=== PATIENT | female | born 1985 | race Caucasian/White ===

== ENCOUNTER → 2016-06-16 | Outpatient (CLI) | payer OTHER ==
--- NOTE | 2016-06-16 18:07 | REP ---
Clinical: Increasing pain without trauma. Technique: AP, lateral, bilateral oblique and sunrise views of the right knee. Findings: No evidence for acute or healed fracture or dislocation. Subtle increase sclerosis to the tibial surface may reflect mild degenerative change. Examination is otherwise unremarkable. The patellofemoral joint space appears normal. No evidence for effusion. Impression: Subtle increase sclerosis to the tibial plateau may reflect mild early degenerative change. Signed by Sammy Colon MD 06/16/2016 05:59 P
== END ==
LOC: M CLY 12:59
PROVIDERS: ATTEND Physician Assistant
DX: M25.561 Pain in right knee (principal); M17.11 Unilateral primary osteoarthritis, right knee

== ENCOUNTER → 2017-03-11 | Outpatient (REF) | payer OTHER ==
[2017-03-11 17:20] LABS: BASO % 0.1 % (0.0-1.0); EOS % 0.2 % (0.0-3.0); IMMATURE GRANULOCYTE % 0.2 % (0-0); LYMPH # 1.5 10^3/uL (1.5-6.5); LYMPH % 17.5 % (24.0-44.0); MEAN CORPUSCULAR HEMOGLOBIN 27.6 pg (27.0-33.0); MEAN CORPUSCULAR HGB CONC 33.8 g/dl (32.0-36.5); MEAN CORPUSCULAR VOLUME 81.5 fl (80.0-96.0); MONO # 0.4 10^3/uL (0.0-0.8); MONO % 4.4 % (0.0-5.0); NEUTROPHILS # 6.8 10^3/uL (1.8-7.7); NEUTROPHILS % 77.6 % (36.0-66.0); PLATELET COUNT, AUTOMATED 274 10^3/uL (150-450); RED CELL DISTRIBUTION WIDTH 12.1 % (11.5-14.5); WHITE BLOOD COUNT 8.7 10^3/uL (4.0-10.0)
[2017-03-11 19:07] LABS: ALT/SGPT 31 U/L (12-78); AST/SGOT 11 U/L (7-37); BILIRUBIN,TOTAL 0.3 MG/DL (0.2-1.0); CREATININE FOR GFR 0.61 MG/DL (0.55-1.02); GLOMERULAR FILTRATION RATE > 60.0 (>60); URIC ACID 3.1 MG/DL (2.6-6.0)
[2017-03-12 11:24] LABS: HBsAg Prenatal NEGATIVE (NEGATIVE)
== END ==
LOC: M LABDRAWC 16:36
PROVIDERS: ATTEND Advanced Practice Midwife
DX: Z34.81 Encounter for supervision of other normal pregnancy, first trimester (principal); Z3A.01 Less than 8 weeks gestation of pregnancy; Z36.89 Encounter for other specified antenatal screening

== ENCOUNTER → 2017-05-12 | Outpatient (CLI) | payer OTHER | LOC: M SMT 13:26 | DX: Z34.82 Encounter for supervision of other normal pregnancy, second trimester (principal); Z3A.18 18 weeks gestation of pregnancy ==

== ENCOUNTER → 2017-05-26 | Outpatient (CLI) | payer OTHER | LOC: M SMT 09:37 | DX: O10.012 Pre-existing essential hypertension complicating pregnancy, second trimester (principal); Z3A.20 20 weeks gestation of pregnancy ==

== ENCOUNTER → 2017-07-20 | Outpatient (CLI) | payer OTHER ==
[2017-07-20 12:55] LABS: HEMATOCRIT 36.4 % (36.0-47.0); HEMOGLOBIN 11.7 g/dl (12.0-15.5); MEAN CORPUSCULAR HEMOGLOBIN 26.8 pg (27.0-33.0); MEAN CORPUSCULAR HGB CONC 32.1 g/dl (32.0-36.5); MEAN CORPUSCULAR VOLUME 83.5 fl (80.0-96.0); PLATELET COUNT, AUTOMATED 269 10^3/uL (150-450); RED BLOOD COUNT 4.36 10^6/uL (4.00-5.40); RED CELL DISTRIBUTION WIDTH 13.3 % (11.5-14.5); WHITE BLOOD COUNT 7.6 10^3/uL (4.0-10.0)
[2017-07-20 13:53] LABS: GLUCOSE CHALLENGE TEST 1 HOUR 130 MG/DL (LESS THAN 140)
== END ==
LOC: M SMT 09:37
DX: Z36.89 Encounter for other specified antenatal screening (principal); Z3A.00 Weeks of gestation of pregnancy not specified
CPT/HCPCS: 82950

== ENCOUNTER → 2017-07-21 | Outpatient (CLI) | payer OTHER ==
[2017-07-21 14:11] LABS: ALT/SGPT 32 U/L (12-78); AST/SGOT 21 U/L (7-37); BILIRUBIN,TOTAL 0.2 MG/DL (0.2-1.0); CREATININE FOR GFR 0.52 MG/DL (0.55-1.30); GLOMERULAR FILTRATION RATE > 60.0 (>60); LDH LACTATE DEHYDROGENASE 152 U/L (84-246); URIC ACID 3.3 MG/DL (2.6-6.0)
[2017-07-21 14:41] LABS: CREATININE,RANDOM URINE 47.9 MG/DL
[2017-07-21 14:41] LABS: TOTAL PROTEIN,RANDOM URINE 9.3 MG/DL (0.0-12.0)
== END ==
LOC: M SMT 10:36
DX: O16.3 Unspecified maternal hypertension, third trimester (principal); Z3A.00 Weeks of gestation of pregnancy not specified

== ENCOUNTER → 2017-08-11 | Outpatient (CLI) | payer OTHER | LOC: M SMT 10:36 | DX: O10.011 Pre-existing essential hypertension complicating pregnancy, first trimester (principal); Z3A.31 31 weeks gestation of pregnancy ==

== ENCOUNTER → 2017-08-17 | Outpatient (CLI) | payer OTHER ==
[2017-08-17 08:31] LABS: GLUCOSE, FASTING 84 MG/DL (LESS THAN 95)
[2017-08-17 10:22] LABS: 1 HR GLUCOSE 168 MG/DL (LESS THAN 180)
[2017-08-17 11:05] LABS: 2 HR GLUCOSE 148 MG/DL (LESS THAN 155)
[2017-08-17 12:18] LABS: 3 HR GLUCOSE 76 MG/DL (LESS THAN 140)
== END ==
LOC: M LAB 07:52
DX: Z34.83 Encounter for supervision of other normal pregnancy, third trimester (principal)
CPT/HCPCS: 82951

== ENCOUNTER → 2017-08-25 | Outpatient (CLI) | payer OTHER | LOC: M SMT 10:37 | DX: O10.013 Pre-existing essential hypertension complicating pregnancy, third trimester (principal) ==

== ENCOUNTER → 2017-09-03 | Outpatient (CLI) | payer OTHER | LOC: M SMT 12:06 | DX: O10.013 Pre-existing essential hypertension complicating pregnancy, third trimester (principal); Z3A.34 34 weeks gestation of pregnancy ==

== ENCOUNTER → 2017-09-07 | Outpatient (REF) | payer OTHER | LOC: M LAB REF 16:59 | DX: O10.013 Pre-existing essential hypertension complicating pregnancy, third trimester (principal) ==

== ENCOUNTER → 2017-09-15 | Outpatient (CLI) | payer OTHER ==
[2017-09-15 13:00] LABS: HEMOGLOBIN 12.1 g/dl (12.0-15.5); MEAN CORPUSCULAR HEMOGLOBIN 27.5 pg (27.0-33.0); MEAN CORPUSCULAR HGB CONC 33.6 g/dl (32.0-36.5); MEAN CORPUSCULAR VOLUME 81.8 fl (80.0-96.0); PLATELET COUNT, AUTOMATED 260 10^3/uL (150-450); RED CELL DISTRIBUTION WIDTH 13.5 % (11.5-14.5); WHITE BLOOD COUNT 7.8 10^3/uL (4.0-10.0)
[2017-09-15 13:20] LABS: CREATININE,RANDOM URINE 91.7 MG/DL
[2017-09-15 13:20] LABS: TOTAL PROTEIN,RANDOM URINE 18.8 MG/DL (0.0-12.0)
[2017-09-15 13:25] LABS: ALT/SGPT 25 U/L (12-78); AST/SGOT 20 U/L (7-37); BILIRUBIN,TOTAL 0.2 MG/DL (0.2-1.0); CREATININE FOR GFR 0.67 MG/DL (0.55-1.30); GLOMERULAR FILTRATION RATE > 60.0 (>60); LDH LACTATE DEHYDROGENASE 219 U/L (84-246); URIC ACID 4.1 MG/DL (2.6-6.0)
== END ==
LOC: M SMT 11:44
DX: O10.013 Pre-existing essential hypertension complicating pregnancy, third trimester (principal)

== ENCOUNTER 2017-09-16 12:04 | Outpatient (CLI) | payer OTHER ==
[2017-09-16] MEDS: BETAMETHASONE SOLUSPAN 6MG/ML INJ 5ML (J0702) IM (13:24)
== END 2017-09-16 14:00 | disposition home or self-care (01) ==
LOC: M LDO 12:04
DX: O16.3 Unspecified maternal hypertension, third trimester (principal); Z3A.36 36 weeks gestation of pregnancy
CPT/HCPCS: J0702

== ENCOUNTER 2017-09-16 20:22 | Inpatient (IN) | payer OTHER ==
[2017-09-16 21:17] LABS: HEMATOCRIT 36.5 % (36.0-47.0); HEMOGLOBIN 12.4 g/dl (12.0-15.5); MEAN CORPUSCULAR HEMOGLOBIN 27.4 pg (27.0-33.0); MEAN CORPUSCULAR VOLUME 80.6 fl (80.0-96.0); PLATELET COUNT, AUTOMATED 255 10^3/uL (150-450); RED BLOOD COUNT 4.53 10^6/uL (4.00-5.40); RED CELL DISTRIBUTION WIDTH 13.4 % (11.5-14.5); WHITE BLOOD COUNT 8.7 10^3/uL (4.0-10.0)
[2017-09-16] MEDS: miSOPROStol 50 MCG 1/2 TAB (S0191) SL (21:21)
[2017-09-17] MEDS: BETAMETHASONE SOLUSPAN 6MG/ML INJ 5ML (J0702) IM (01:59)
[2017-09-17] MEDS: miSOPROStol 50 MCG 1/2 TAB (S0191) SL ×2 (01:59→06:43)
[2017-09-17] MEDS ORDERED: MAGNESIUM SULFATE 50% 5GM/10ML(4MEQ/ML) SYRINGE As Ordered (05:45)
[2017-09-17] MEDS ORDERED: LABETALOL 100 MG TAB PO (09:00)
[2017-09-17] MEDS: LABETALOL 200 MG TAB PO ×2 (09:14→20:41)
[2017-09-17] MEDS: LR 1,000 ML IV ×2 (11:16→18:50)
[2017-09-17] MEDS: OXYTOCIN DRIP 30 UNITS in APPROPRIATE DILUENT 1 EA IV ×2 (11:17→22:37)
[2017-09-17 22:16] LABS: CORD GAS ABE A 0.8; CORD GAS HCO3 A 26.6 MEQ/L; CORD GAS O2 SAT A 35.6 %; CORD GAS PCO2 A 46.7 mmHg; CORD GAS PH A 7.374 UNITS; CORD GAS PO2 A 16.4 mmHg; CORD GAS SBC A 23.5 MEQ/L; CORD GAS TCO2 A 28.1 MEQ/L
[2017-09-17 22:17] LABS: CORD GAS ABE V 1.9; CORD GAS HCO3 V 25.6 MEQ/L; CORD GAS O2 SAT V 65.9 %; CORD GAS PCO2 V 37.3 mmHg; CORD GAS PH V 7.454 UNITS; CORD GAS PO2 V 25.3 mmHg; CORD GAS SBC V 25.2 MEQ/L; CORD GAS TCO2 V 26.7 MEQ/L
[2017-09-17] MEDS ORDERED: MEASLES,MUMPS,RUBELLA VACCINE INJ (MMR-II) (90707) SC (22:45)
[2017-09-17] MEDS ORDERED: DOCUSATE SODIUM 100 MG CAP PO (22:45)
[2017-09-17] MEDS ORDERED: DIBUCAINE 1% OINTMENT 30GM TOP (22:45)
[2017-09-17] MEDS ORDERED: ACETAMINOPHEN 500 MG TAB PO (22:45)
[2017-09-17] MEDS ORDERED: RHOGAM 300 MCG (1500 IU) INJ (J2790) IM (22:45)
[2017-09-17] MEDS ORDERED: ONDANSETRON 4MG/2ML VIAL (J2405) IV (22:45)
[2017-09-17] MEDS ORDERED: IBUPROFEN 600 MG TAB PO (22:45)
[2017-09-18] MEDS: LABETALOL 200 MG TAB PO ×2 (08:38→21:32)
[2017-09-18] MEDS: PRENATAL VITAMINS CHEWABLE TABLET PO (08:38)
[2017-09-19] MEDS: PRENATAL VITAMINS CHEWABLE TABLET PO (09:54)
[2017-09-19] MEDS: LABETALOL 200 MG TAB PO (09:55)
== END 2017-09-19 14:55 | disposition home or self-care (01) | DRG 560 ==
LOC: M LDI 20:22 → M OBS 09-18 07:20
PROVIDERS: Specialist
PROC: 3E073GC Introduction of Other Therapeutic Substance into Coronary Artery, Percutaneous Approach (ICD-10-PCS; 2017-09-16)
PROC: 10E0XZZ Delivery of Products of Conception, External Approach (ICD-10-PCS; principal; 2017-09-17)
DX: O11.4 Pre-existing hypertension with pre-eclampsia, complicating childbirth (principal); Z3A.36 36 weeks gestation of pregnancy; Z37.0 Single live birth; O10.012 Pre-existing essential hypertension complicating pregnancy, second trimester

== ENCOUNTER → 2017-09-16 | Outpatient (CLI) | payer OTHER | LOC: M SMT 10:23 | DX: O10.013 Pre-existing essential hypertension complicating pregnancy, third trimester (principal); O41.93X1 Disorder of amniotic fluid and membranes, unspecified, third trimester, fetus 1; Z3A.36 36 weeks gestation of pregnancy | CPT/HCPCS: 76819 ==

== ENCOUNTER → 2018-04-11 | Outpatient (REF) | payer OTHER ==
[~2018-04-11] MED LIST: ACET-683 PO; BUSP5TA PO; IBUP-1114 PO; LABE20TAB PO; PRENTAB9 PO
[2018-04-13 14:37] LABS: HPV HYBRID CAPTURE II Negative (Negative)
== END ==
LOC: M SMT 13:14
PROVIDERS: ATTEND Advanced Practice Midwife
DX: Z12.4 Encounter for screening for malignant neoplasm of cervix (principal)
CPT/HCPCS: 87624; G0123

== ENCOUNTER → 2019-02-27 | Outpatient (REF) | payer OTHER | LOC: M PLALAB 14:48 | PROVIDERS: ATTEND Advanced Practice Midwife | DX: R30.0 Dysuria (principal) ==

== ENCOUNTER → 2019-03-21 | Outpatient (REF) | payer OTHER | LOC: M SFHCWAGY 10:52 | PROVIDERS: ATTEND Advanced Practice Midwife | DX: R30.0 Dysuria (principal) ==

== ENCOUNTER → 2020-10-29 | Outpatient (REF) | payer OTHER ==
[2020-10-29 18:38] LABS: APPEARANCE, URINE HAZY (CLEAR); BACTERIA, URINE AUTO 1+ (NEGATIVE); BILIRUBIN, URINE AUTO NEGATIVE (NEGATIVE); BLOOD, URINE BLOOD 3+ (NEGATIVE); COLOR, URINE YELLOW (YELLOW); GLUCOSE, URINE (UA) AUTO NEGATIVE (NEGATIVE); KETONE, URINE AUTO 1+ mg/dL (NEGATIVE); LEUKOCYTE ESTERASE, URINE AUTO 2+ (NEGATIVE); MUCUS, URINE SMALL (NEGATIVE); NITRITE, URINE AUTO NEGATIVE (NEGATIVE); PROTEIN, URINE AUTO 1+ mg/dL (NEGATIVE); RBC, URINE AUTO 41 /HPF (0-3); SQUAMOUS EPITHELIAL CELL UR AU 2 /HPF (0-6); UROBILINOGEN, URINE AUTO 0.2 mg/dL (0.0-2.0); WBC, URINE AUTO 157 /HPF (0-3)
== END ==
LOC: M SFHCWAGY 17:58
PROVIDERS: ATTEND Obstetrics & Gynecology
DX: R30.0 Dysuria (principal)

== ENCOUNTER → 2021-01-13 | Outpatient (REF) | payer OTHER | LOC: M SFHCWAGY 17:59 | PROVIDERS: ATTEND Advanced Practice Midwife | DX: Z12.4 Encounter for screening for malignant neoplasm of cervix (principal) ==